=== PATIENT | male | born 1995 | race Caucasian/White ===

== ENCOUNTER 2018-08-29 09:21 | Emergency (ER) | payer OTHER ==
[~2018-08-29] VITALS: Ht 177.8 cm; Wt 82.0 kg
[2018-08-29 12:07] VITALS: BP 142/88
== END 2018-08-29 12:31 | disposition home or self-care (01) ==
LOC: ER 09:21 → EDBD 09:21 → ER 12:31
DX: G92 Toxic encephalopathy (principal); F17.200 Nicotine dependence, unspecified, uncomplicated; T43.621A Poisoning by amphetamines, accidental (unintentional), initial encounter; Y92.89 Other specified places as the place of occurrence of the external cause
CPT/HCPCS: 99283